=== PATIENT | male | born 1985 | race Caucasian/White ===

== ENCOUNTER 2016-09-07 12:03 | Day surgery (SDC) | payer BC ==
[~2016-09-07] VITALS: Ht 172.7 cm; Wt 117.9 kg
[~2016-09-07 12:03] MED LIST: AMBIEN CR12.5 MG PO; BENTYL10 MG PO; CALCIUM; CARAFATE100 MG/ML PO; CELEBREX200 MG PO; CYMBALTA60 MG PO; IRON325 M1 PO; MULTIVITAMIN1 EAC1 PO; NALTREXONE HCL50 MG PO; PRILOSEC20 MG PO; PROTONIX40 MG PO; THERAGRAN1 TABLET PO; TOPAMAX25 MG PO; VITAMIN B12; Vicodin,Lortab 5/500 PO; WELLBUTRIN75 MG PO
[2016-09-07 12:59] VITALS: BP 137/90
[2016-09-07 19:21] VITALS: BP 134/83
[2016-09-07 20:30] VITALS: BP 130/66
== END 2016-09-07 20:40 | disposition home or self-care (01) ==
LOC: SDC
DX: K45.8 Other specified abdominal hernia without obstruction or gangrene (principal); K66.0 Peritoneal adhesions (postprocedural) (postinfection); Z98.84 Bariatric surgery status; K21.9 Gastro-esophageal reflux disease without esophagitis; E66.01 Morbid (severe) obesity due to excess calories; Z68.39 Body mass index [BMI] 39.0-39.9, adult
CPT/HCPCS: J0131; J1100; J1170; J1580; J1644; J1885; J2250; J2405; J2710; J2765; J3010; J7050; S0020